=== PATIENT | male | born 1945 | race American Indian/Alaskan Native ===

== ENCOUNTER 2018-10-05 02:06 | Emergency (ER) | payer MEDICARE ==
[2018-10-05 03:26] LABS: Basophils # (Auto) 0.1 K/mm3 (0.0-0.1); Basophils % (Auto) 0.8 % (0.0-1.8); Eosinophils # (Auto) 0.1 K/mm3 (0.0-0.4); Eosinophils % (Auto) 0.8 % (0.0-4.3); Hematocrit 41.1 % (35.5-45.6); Hemoglobin 13.4 gm/dl (11.8-15.2); Lymphocytes # (Auto) 2.9 K/mm3 (1.2-5.4); Lymphocytes % (Auto) 38.9 % (13.4-35.0); Mean Corpuscular HGB Conc 33 % (32-34); Mean Corpuscular Volume 88 fl (84-94); Monocytes # (Auto) 0.5 K/mm3 (0.0-0.8); Monocytes % (Auto) 7.1 % (0.0-7.3); Platelet Count 256 K/mm3 (140-440); Red Blood Count 4.67 M/mm3 (3.65-5.03); Red Cell Distribution Width 14.8 % (13.2-15.2)
[2018-10-05 03:32] LABS: BUN/Creatinine Ratio 15; Blood Urea Nitrogen 15 mg/dL (9-20); Calcium 9.5 mg/dL (8.4-10.2); Hemolysis Index 7
--- NOTE | 2018-10-05 06:47 | Emergency Department Report ---
HPI - General Chief Complaint: Psych Time Seen by Provider: 10/05/18 04:44 - HPI HPI: 73-year-old male presents to the emergency department, dropped off by the [facility] police, with the complaint of some depression and suicidal ideations. The patient says that he has some recent issues with living arrangements. He says that he got into an argument with someone who ran a half way house he was staying at. Then he had some issues with another facility he was at after he was at [place] [facility]. Most recently he says that he was staying with his daughter until she kicked him out because she "wants to control everything." He says that all of this has gotten to him and he is "ready to just check out." The patient confirms that he means that he is having suicidal ideations. He denies any homicidal ideations or any hallucinations. ED Past Medical Hx - Past Medical History Previous Medical History?: Yes Hx Hypertension: Yes Hx CVA: Yes Hx Diabetes: Yes Hx Liver Disease: Yes Hx Psychiatric Treatment: Yes ("Mental", PTSD) Additional medical history: Neuropathy - Surgical History Past Surgical History?: Yes Additional Surgical History: toe amputation Left 2008 - Social History Smoking Status: Current Some Day Smoker - Medications Home Medications: Home Medications Medication Instructions Recorded Confirmed Last Taken Type Acetaminophen [Tylenol] 1 - 2 tab PO Q6HR PRN 08/19/18 10/05/18 Unknown History Ascorbic Acid [Vitamin C with Jessica 500 mg PO QDAY 08/19/18 10/05/18 Unknown History Hips] Aspirin EC [Aspirin Enteric Coated 81 mg PO QDAY 08/19/18 10/05/18 Unknown History TAB] Atorvastatin [Lipitor Tab] 40 mg PO QHS 08/19/18 10/05/18 Unknown History Duloxetine HCl [Cymbalta] 40 mg PO QDAY 08/19/18 08/19/18 Unknown History Insulin Glargine,Hum.rec.anlog 20 units SUB-Q HS 08/19/18 10/05/18 Unknown History [Lantus Solostar] Insulin Regular, Human [Novolin R] See Protocol SUB-Q TID 08/19/18 10/05/18 Unknown History Lisinopril [Zestril] 40 mg PO BID 08/19/18 10/05/18 Unknown History Multivitamin Tab W-MINERAL 1 each PO QDAY 08/19/18 10/05/18 Unknown History [Multiple Vitamin/Mineral (Theragran M)] Thiamine HCl [Vitamin B-1] 100 mg PO QDAY 08/19/18 10/05/18 Unknown History hydroCHLOROthiazide [HCTZ] 25 mg PO QAM 08/19/18 10/05/18 Unknown History metFORMIN [Glucophage] 1,000 mg PO BID 08/19/18 10/05/18 Unknown History Cyanocobalamin (Vitamin B-12) 1,000 mcg PO DAILY 10/05/18 10/05/18 Unknown History ED Review of Systems ROS: Stated complaint: SUICIDAL THOUGHTS/MH EVAL Other details as noted in HPI Comment: All other systems reviewed and negative Constitutional: denies: chills, fever Eyes: denies: eye pain, eye discharge, vision change ENT: denies: ear pain, throat pain Respiratory: denies: cough, shortness of breath, wheezing Cardiovascular: denies: chest pain, palpitations Gastrointestinal: denies: abdominal pain, vomiting Genitourinary: denies: dysuria, discharge Musculoskeletal: denies: back pain, arthralgia Skin: denies: rash, lesions Neurological: denies: headache, weakness Psychiatric: suicidal thoughts. denies: auditory hallucinations, visual hallucinations Physical Exam - Physical Exam Vital Signs: Vital Signs 10/05/18 10/05/18 10/05/18 02:12 02:26 05:33 Temperature 97.7 F 97.7 F Pulse Rate 92 H 91 H 82 Respiratory 18 18 18 Rate Blood Pressure 183/116 183/116 Blood Pressure 162/86 [Left] O2 Sat by Pulse 96 97 100 Oximetry 10/05/18 05:48 Temperature Pulse Rate Respiratory 16 Rate Blood Pressure Blood Pressure [Left] O2 Sat by Pulse 100 Oximetry Physical Exam: GENERAL: The patient is well-developed well-nourished. HEENT: Normocephalic. Atraumatic. Patient has moist mucous membranes. EYES: Extraocular motions are intact. Pupils are equal and reactive to light bilaterally. NECK: Supple. Trachea is midline. CHEST/LUNGS: Clear to auscultation. There is no respiratory distress noted. HEART/CARDIOVASCULAR: Regular. There is no tachycardia. There is no obvious murmur. ABDOMEN: Abdomen is soft, nontender. Patient has normal bowel sounds. There is no abdominal distention. SKIN: Skin is warm and dry. NEURO: The patient is awake, alert, and oriented. The patient is cooperative. The patient has normal speech. MUSCULOSKELETAL: There is no tenderness or deformity. There is no evidence of acute injury. ED Course Vital Signs 10/05/18 10/05/18 10/05/18 02:12 02:26 05:33 Temperature 97.7 F 97.7 F Pulse Rate 92 H 91 H 82 Respiratory 18 18 18 Rate Blood Pressure 183/116 183/116 Blood Pressure 162/86 [Left] O2 Sat by Pulse 96 97 100 Oximetry 10/05/18 05:48 Temperature Pulse Rate Respiratory 16 Rate Blood Pressure Blood Pressure [Left] O2 Sat by Pulse 100 Oximetry ED Medical Decision Making - Lab Data Result diagrams: 10/05/18 02:37 10/05/18 02:37 - Medical Decision Making Patient presents to the emergency department with a complaint of some depression and suicidal ideations mostly related to some issues with living arrangements. Currently the patient is calm and appropriate but does confirm that he has th shira suicidal ideations. For this reason the patient has been made a 1013. We do not yet have a urinalysis, however the blood work obtained has been unremarkable including negative blood alcohol level. Patient has some hypertension but otherwise his vital signs were stable throughout his ED course thus far. Patient is medically cleared for psychiatric placement. - Differential Diagnosis depression, substance abuse, bipolar disorder, schizophrenia Critical Care Time: No Critical care attestation.: If time is entered above; I have spent that time in minutes in the direct care of this critically ill patient, excluding procedure time. ED Disposition Clinical Impression: Suicidal ideations Depression Qualifiers: Depression Type: unspecified Qualified Code(s): F32.9 - Major depressive disorder, single episode, unspecified Disposition: [id number]/TX-65 PSY HOSP/PSY UNIT Is pt being admited?: No Condition: Stable Referrals: [facility] [Other] - 3-5 Days Time of Disposition: 06:49
[2018-10-05 09:08] LABS: Bilirubin,Urine NEG (Negative); Blood,Urine NEG (Negative); Color,Urine Yellow (Yellow); Protein,Urine <15 mg/dL mg/dL (Negative); Urobilinogen,Urine < 2.0 mg/dL (<2.0); WBC,Urine < 1.0 /HPF (0.0-6.0)
[2018-10-05 09:14] LABS: Amphetamine Screen,Urine PRESUMPTIVE NEGATIVE; Benzodiazepines Screen,Urine PRESUMPTIVE NEGATIVE; Cannabinoid Screen,Urine PRESUMPTIVE NEGATIVE; Methadone Screen,Urine PRESUMPTIVE NEGATIVE; Opiate Screen,Urine PRESUMPTIVE NEGATIVE
[2018-10-05] MEDS: HCTZ PO SCH (09:35)
[2018-10-05 09:42] LABS: Cocaine Screen,Urine PRESUMPTIVE POSITIVE
[2018-10-05] MEDS ORDERED: CYANOCOBALAMIN 1000 MCG PO SCH (14:00)
[2018-10-05] MEDS: ZESTRIL PO SCH ×2 (14:51→21:50)
[2018-10-05] MEDS ORDERED: ATORVASTATIN 40 MG PO SCH (22:00)
[2018-10-05] MEDS ORDERED: LANTUS SUB-Q SCH (22:00)
[2018-10-05] MEDS ORDERED: NON-FORMULARY (Insulin Glargine,Hum.Rec.Anlog [Lantus Solostar] 20 UNITS) SUB-Q SCH (22:00)
[2018-10-05] MEDS: GLUCOPHAGE PO SCH (22:29)
[2018-10-05] MEDS ORDERED: TYLENOL PO ONE (22:30)
[2018-10-05] MEDS ORDERED: TYLENOL ONE (22:34)
[2018-10-06] MEDS ORDERED: VITAMIN B-12 PO SCH (10:00)
[2018-10-06] MEDS: GLUCOPHAGE PO SCH (10:35)
[2018-10-06] MEDS: HCTZ PO SCH (10:35)
[2018-10-06] MEDS ORDERED: ZESTRIL PO SCH (12:15)
--- NOTE | 2018-10-06 13:55 | Consultation ---
History of Present Illness - Reason for Consult Consult date: 10/06/18 Reason for consult: Mental Health Evaluation Requesting physician: NORMA SILVERMAN - Chief Complaint Chief complaint: "I was never suicidal" - History of Present Psychiatric Illness 73-year-old male presents to the emergency department, dropped off by the [facility] police, with the complaint of some depression and suicidal ideations. Today the patient is calm and cooperative during the assessment. He stated having "bad luck" with housing via the [place]. He stated that he currently may not have a place to stay and was afraid that he maybe homeless. So he decided to state that he was suicidal during triage to stay out of the recent cold weather. He apologized for his actions. He stated that he was never suicidal. He denies any previous suicidal attempts when asked. He denies SI/HI's and AVH's. He denies being depressed, but acknowledged a substance abuse hx. He denies erratic sleep and a poor appetite. He denies alcohol consumption (etoh). Medications and Allergies Allergies Allergy/AdvReac Type Severity Reaction Status Date / Time No Known Allergies Allergy Unverified 08/19/18 10:05 Home Medications Medication Instructions Recorded Confirmed Last Taken Type Acetaminophen [Tylenol] 1 - 2 tab PO Q6HR PRN 08/19/18 10/05/18 Unknown History Ascorbic Acid [Vitamin C with Jessica 500 mg PO QDAY 08/19/18 10/05/18 Unknown Hi story Hips] Aspirin EC [Aspirin Enteric Coated 81 mg PO QDAY 08/19/18 10/05/18 Unknown Histo ry TAB] Atorvastatin [Lipitor Tab] 40 mg PO QHS 08/19/18 10/05/18 Unknown History Duloxetine HCl [Cymbalta] 40 mg PO QDAY 08/19/18 10/05/18 Unknown History Insulin Glargine,Hum.rec.anlog 20 units SUB-Q HS 08/19/18 10/05/18 Unknown History [Lantus Solostar] Insulin Regular, Human [Novolin R] See Protocol SUB-Q TID 08/19/18 10/05/18 Unknown History Lisinopril [Zestril] 40 mg PO BID 08/19/18 10/05/18 Unknown History Multivitamin Tab W-MINERAL 1 each PO QDAY 08/19/18 10/05/18 Unknown History [Multiple Vitamin/Mineral (Theragran M)] Thiamine HCl [Vitamin B-1] 100 mg PO QDAY 08/19/18 10/05/18 Unknown History hydroCHLOROthiazide [HCTZ] 25 mg PO QAM 08/19/18 10/05/18 Unknown History metFORMIN [Glucophage] 1,000 mg PO BID 08/19/18 10/05/18 Unknown History Cyanocobalamin (Vitamin B-12) 1,000 mcg PO DAILY 10/05/18 10/05/18 Unknown History Active Meds: Active Medications Atorvastatin Calcium (Lipitor) 40 mg PO QHS [facility] Last Admin: 10/05/18 21:50 Dose: Not Given Documented by: Cyanocobalamin (Vitamin B-12) 1,000 mcg PO QDAY [facility] Last Admin: 10/06/18 12:30 Dose: 1,000 mcg Documented by: Hydrochlorothiazide (Hctz) 25 mg PO QAM [facility] Last Admin: 10/06/18 10:35 Dose: 25 mg Documented by: Insulin Glargine (Lantus) 20 units SUB-Q QHS [facility] Last Admin: 10/05/18 23:03 Dose: 20 units Documented by: Lisinopril (Zestril) 40 mg PO BID [facility] Metformin HCl (Glucophage) 1,000 mg PO BID [facility] Last Admin: 10/06/18 10:35 Dose: 1,000 mg Documented by: Past psychiatric history - Past Medical History Past Medical History: hypertension, other (Liver Disease) Past Surgical History: No surgical history - past Psychiatric treatment and history psychiatric treatment history[facility] Denies a fam psy hx. - Social History Social history: other (Homeless) Mental Status Exam - Vital signs Last Vital Signs Temp 97.9 F 10/06/18 08:08 Pulse 82 10/06/18 08:08 Resp 20 10/06/18 08:08 BP 167/97 10/06/18 08:08 Pulse Ox 100 10/06/18 08:08 - Exam Narrative exam: MSE: Appearance: calm, cooperative Behavior: regular eye contact Speech: regular rate and tone Mood: "okay" Affect: congruent to mood Thought Process: linear Thought Content: denies SI/HI's and AVH's Motor Activity: sitting up in the bed Cognition: A/O x 3 Insight: appropriate Judgment: appropriate Results Result Diagrams: 10/05/18 02:37 10/05/18 02:37 Abnormal lab results 10/05/18 10/05/18 10/06/18 Range/Units 17:14 23:31 08:32 POC Glucose 190 H 199 H 160 H (70-105) 10/06/18 Range/Units 11:23 POC Glucose 191 H (70-105) All other labs normal. Assessment and Plan Assessment and plan: Impression: Substance Use DO (cocaine). Today the patient is calm and cooperative during the assessment. The patient is no threat to self. Recommendation/Plan: Rescind 1013. Case Mgmt involvement, the patient may need assistance with placement. Dispo: [facility]. Will staff with Dr Jordan Lira.
[2018-10-06 13:56] VITALS: BP 147/87
[2018-10-06] MEDS: ZESTRIL PO SCH (13:58)
--- NOTE | 2018-10-06 15:00 | Emergency Department Report ---
Blank Doc - Documentation Documentation: Patient seen and examined by psychiatry and 1013 was signed. Patient she'll f ollow up with services provided to them
== END 2018-10-06 16:38 | disposition home or self-care (01) ==
LOC: EEVIPCON 02:06 → ED 02:06
DX: F32.9 Major depressive disorder, single episode, unspecified (principal); I10 Essential (primary) hypertension; F17.200 Nicotine dependence, unspecified, uncomplicated; E11.40 Type 2 diabetes mellitus with diabetic neuropathy, unspecified; Z86.73 Personal history of transient ischemic attack (TIA), and cerebral infarction without residual deficits; Z79.82 Long term (current) use of aspirin; Z79.4 Long term (current) use of insulin
CPT/HCPCS: 36415; 80048; 80307; 81001; 82962; 85025; 96372; 99284; A9270; G0480; 80320; J1815